=== PATIENT | female | born 1965 | race Hispanic/Latino ===

== ENCOUNTER 2018-02-19 09:59 | Outpatient (CLI) | payer OTHER ==
[2018-02-19] MEDS ORDERED: XYLOCAINE TOPICAL 4% TP ONE ×2 (10:24→13:43)
== END 2018-02-19 10:00 | disposition home or self-care (01) ==
LOC: WOUND 09:59
PROVIDERS: ATTEND Surgery
DX: L97.522 Non-pressure chronic ulcer of other part of left foot with fat layer exposed (principal); I87.2 Venous insufficiency (chronic) (peripheral); K72.10 Chronic hepatic failure without coma
CPT/HCPCS: 11042; G0463; 99215